=== PATIENT | male | born 1945 | race Caucasian/White ===

== ENCOUNTER 2019-05-25 12:01 | Emergency (ER) | payer MEDICARE, OTHER ==
[~2019-05-25] VITALS: Ht 175 cm; Wt 77.0 kg
[2019-05-25] MEDS ORDERED: MELO15TA39 PO (12:14)
--- NOTE | 2019-05-25 12:14 | ED Head Injury ---
General Chief Complaint: Laceration Stated Complaint: HEAD INJ Nursing Triage Note: PT FELL OFF STOOL AT [employer] HITTING HIS HEAD ON THE DOOR FRAME CAUSING A LACERATION. Source: patient Exam Limitations: no limitations History of Present Illness Date Seen by Provider: May 25, 2019 Time Seen by Provider: 12:13 Initial Comments To ER with reports of a scalp laceration after falling off of a stool [employer] just prior to arrival. No loss of consciousness no neck pain. Occurred: just prior to arrival Severity: moderate Location: parietal Method of Injury: direct blow, fell Associated Systoms: No Headaches, No Nausea/Vomiting Allergies and Home Medications Allergies Uncoded Allergies: IV CONTRAST (Allergy, Unknown, EDEMA, 05/25/19) Patient Home Medication List Home Medication List Reviewed: Yes Review of Systems Review of Systems Constitutional: see HPI Eyes: No Symptoms Reported Ears, Nose, Mouth, Throat: no symptoms reported Respiratory: no symptoms reported Cardiovascular: no symptoms reported Genitourinary: no symptoms reported Musculoskeletal: no symptoms reported Skin: no symptoms reported Psychiatric/Neurological: No Symptoms Reported Endocrine: No Symptoms Reported Hematologic/Lymphatic: No Symptoms Reported Past Ojlfjlv-[id number]-Mcnjjn Hx Patient Social History Recent Foreign Travel: No Contact w/Someone Who Travel: No Recent Infectious Disease Expo: No Physical Exam Vital Signs Vital Signs - First Documented 05/25/19 12:10 Temp 37.0 Pulse 68 Resp 16 B/P (MAP) 168/97 (120) Pulse Ox 98 O2 Delivery Room Air Capillary Refill : Less Than 3 Seconds Height, Weight, BMI Height: '" Weight: lbs. oz. kg; 25.00 BMI Method: General Appearance: WD/WN, no apparent distress HEENT: PERRL/EOMI, normal ENT inspection, other (2.5 semi-laceration left parietal scalp) Neck: non-tender, full range of motion Cardiovascular: regular rate, rhythm, no murmur Respiratory: no respiratory distress, no accessory muscle use Gastrointestinal: normal bowel sounds, non tender Extremities: normal range of motion, non-tender Psychiatric: alert, oriented x 3 Skin: normal color, warm/dry Andrés Coma Score Best Eye Response: (4) Open Spontaneously Best Verbal Response: (5) Oriented Best Motor Response: (6) Obeys Commands Andrés Total: 15 Procedures/Interventions Wound Location: Scalp Wound Length (cm): 3 Wound's Depth, Shape: linear, sub Q Wound Explored: clean Anesthesia: Lidocaine w/ Epi Progress Area anesthetized locally with 3 cc of 2% lidocaine with epinephrine. Wound scrubbed with chlorhexidine/saline solution then closed with 5 carolyn. Progress/Results/Core Measures Results/Orders My Orders Orders - DEISY CHAMBERS APRN Ct Head/Cervical Spine Wo (05/25/19 12:12) Lidocaine/Epi 2% 1:100,000 (Xylocaine/Ep (05/25/19 12:15) Medications Given in ED Current Medications Medications Dose Ordered Sig/Major Route Start Time Stop Time Status Last Admin Dose Admin Lidocaine/ Epinephrine 2 ml ONCE ONCE INJ 05/25/19 12:15 05/25/19 12:16 DC 05/25/19 12:44 2 ML Vital Signs/I&O 05/25/19 12:10 Temp 37.0 Pulse 68 Resp 16 B/P (MAP) 168/97 (120) Pulse Ox 98 O2 Delivery Room Air Blood Pressure Mean: 120 Departure Impression Primary Impression: Laceration of scalp Qualified Codes: S01.01XA - Laceration without foreign body of scalp, initial encounter Disposition: HOME, SELF-CARE Condition: Stable Departure-Patient Inst. Decision time for Depature: 13:25 Patient Instructions: Laceration Repair With [place] (DC) Add. Discharge Instructions: 1. He can shower starting tonight 2. Have the carolyn removed in about 5-7 days 3. Return to ER for any concerns or other symptoms. All discharge instructions reviewed with patient and/or family. Voiced understanding. DEISY CHAMBERS APRN May 25, 2019 12:14
[2019-05-25] MEDS ORDERED: LIDOCAINE/EPI 2% 1:100,00 (XYLOCAINE) 20 ML VIAL INJ ONE (12:15)
--- NOTE | 2019-05-25 13:24 | Diagnostic Imaging Report ---
PROCEDURE: CT head and CT cervical spine without contrast. TECHNIQUE: Multiple contiguous axial images were obtained through the brain and cervical spine without the use of intravenous contrast. Sagittal and coronal reformations through the cervical spine were then performed. Auto Exposure Controls were utilized during the CT exam to meet ALARA standards for radiation dose reduction. INDICATION: Fell and struck head on brick wall. CT HEAD: The ventricles are normal in size, shape and position. There are no masses or hemorrhages. There are no extra-axial fluid collections. There is a left parietal scalp hematoma. IMPRESSION: No acute intracranial abnormality seen. CT CERVICAL SPINE: Vertebral body alignment is normal. There is disc space narrowing at C4-C5 and C5-C6. There are some degenerative changes of the uncovertebral joints from C3 through C5. There is no fracture. IMPRESSION: There are degenerative changes in the cervical spine but no acute abnormalities seen. Dictated by: Dictated on workstation # [id number]
[2019-05-25 13:29] VITALS: BP 168/97
== END 2019-05-25 13:29 | disposition home or self-care (01) ==
LOC: ER 12:02
DX: S01.01XA Laceration without foreign body of scalp, initial encounter (principal); R40.2142 Coma scale, eyes open, spontaneous, at arrival to emergency department; R40.2252 Coma scale, best verbal response, oriented, at arrival to emergency department; R40.2362 Coma scale, best motor response, obeys commands, at arrival to emergency department; Z91.041 Radiographic dye allergy status; W08.XXXA Fall from other furniture, initial encounter; Y92.511 Restaurant or cafe as the place of occurrence of the external cause
CPT/HCPCS: 70450; 72125